=== PATIENT | female | born 1995 | race African-American/Black ===

== ENCOUNTER 2021-03-07 13:14 | Emergency (ER) | payer SELFPAY ==
[~2021-03-07] VITALS: Ht 167.6 cm; Wt 54.0 kg
[2021-03-07 13:39] VITALS: BP 123/79
[2021-03-07] MEDS ORDERED: ACETAMINOPHEN 325MG TABLET PO ONE (15:15)
[2021-03-07] MEDS ORDERED: ACET-2708 MT (15:47)
== END 2021-03-07 16:09 | disposition home or self-care (01) ==
LOC: ER 13:14
DX: S83.8X1A Sprain of other specified parts of right knee, initial encounter (principal); V19.9XXA Pedal cyclist (driver) (passenger) injured in unspecified traffic accident, initial encounter; Y93.55 Activity, bike riding; Y92.9 Unspecified place or not applicable
CPT/HCPCS: 73562; 99283

== ENCOUNTER 2021-11-20 21:14 | Emergency (ER) | payer SELFPAY ==
[~2021-11-20] VITALS: Ht 165.1 cm; Wt 56.0 kg
[~2021-11-20 21:14] MED LIST: ACET-2708 MT
[2021-11-20 23:00] VITALS: BP 105/86
[2021-11-20] MEDS ORDERED: ACETAMINOPHEN WITH CODEINE 300/30MG TABLET PO ONE (23:00)
[2021-11-20] MEDS ORDERED: IBUP-2029 MT (23:46)
== END 2021-11-21 00:02 | disposition home or self-care (01) ==
LOC: ER 21:14
DX: S09.8XXA Other specified injuries of head, initial encounter (principal); S90.01XA Contusion of right ankle, initial encounter; S90.31XA Contusion of right foot, initial encounter; V00.141A Fall from scooter (nonmotorized), initial encounter; Y93.89 Activity, other specified; Y92.9 Unspecified place or not applicable
CPT/HCPCS: 73610; 73630; 99284

== ENCOUNTER 2024-05-15 15:30 | Emergency (ER) | payer SELFPAY ==
[~2024-05-15] VITALS: Ht 165.1 cm; Wt 62.0 kg
[~2024-05-15 15:30] MED LIST changes: +IBUP-2029 MT
[2024-05-15 15:40] VITALS: O2SAT 100
[2024-05-15] MEDS: LORAZEPAM 0.5MG TABLET PO NR (16:36)
[2024-05-15 16:44] VITALS: BP 133/78; PULSE 79; RESP 16; TEMP 36.78072; O2SAT 100
== END 2024-05-15 16:46 | disposition home or self-care (01) ==
LOC: ER 15:30
DX: F41.9 Anxiety disorder, unspecified (principal); R05.9 Cough, unspecified; R09.81 Nasal congestion
CPT/HCPCS: 71045; 93005; 99283

== ENCOUNTER 2024-05-28 08:11 | Emergency (ER) | payer MEDICAID ==
[~2024-05-28] VITALS: Ht 165.1 cm; Wt 63.5 kg
[2024-05-28 08:23] VITALS: O2SAT 99
[2024-05-28 08:38] VITALS: BP 147/95; PULSE 97; RESP 16; TEMP 98.2; O2SAT 98
[2024-05-28] MEDS ORDERED: KETO10TA2 MT (09:30)
[2024-05-28] MEDS ORDERED: AMOX1TAB16 MT (09:30)
[2024-05-28] MEDS: IBUPROFEN 600MG TABLET PO ONE (10:09)
== END 2024-05-28 10:11 | disposition home or self-care (01) ==
LOC: ER 08:11
DX: K02.9 Dental caries, unspecified (principal)
CPT/HCPCS: 99283